=== PATIENT | male | born 1955 | race Caucasian/White ===

== ENCOUNTER 2018-08-21 14:17 | Emergency (ER) | payer OTHER, SELFPAY ==
[2018-08-21 14:18] VITALS: BP 125/89; PULSE 68; RESP 14; TEMP 36.8; O2SAT 97; BMI 24.0
--- NOTE | 2018-08-21 14:34 | ED.RN ---
ABRASIONS TO RT ANKLE, 2 ABRASION AROUND RT ELBOW.
--- NOTE | 2018-08-21 14:45 | RAD_ITS ---
STUDY: X-RAY - RIGHT HIP REASON FOR EXAM: Male, 63 years old. Pain following a fall. TECHNIQUE: 2 views of the hip. COMPARISON: None. FINDINGS: Normal femoral head, neck, intertrochanteric region and visualized proximal femur. Normal acetabulum. Normal hip joint. Normal visualized superior and inferior pubic rami and ischial tuberosities. RAD/HIP, UNI W/ Pelvis 2-3 Views IMPRESSION: Normal x-ray examination of the hip. Electronically Signed: Shashank Herrera MD at 15:21 EST Tel [phone], Service support ,
--- NOTE | 2018-08-21 15:20 | ED.VISSUMM ---
- ER Visit Summary Date of Service: 08/21/18 Chief Complaint: Right hip pain History of Present Illness: The patient is a 63 M brought in by EMS after right hip injury. 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 They fell to the ground and the patient landed on his right lateral hip. He has pain in the right hip. There is no pain radiating down the leg. He denies back pain. He did not strike his head. Physical Examination: Vital signs unremarkable. Patient sitting upright in bed no acute distress. Heart is regular rate and rhythm. Lungs sounds clear. Lower extremity examination reveals mild tenderness of the anterior portion of the right hip. He has equal leg lengths. Strong pulses are noted. He has mild pain with movement at the right hip. No pain with movement at the right knee or ankle. Skin exam reveals superficial skin abrasions are noted over the right lateral ankle and the right upper arm. No bony tenderness is noted to these areas. Test Results: Pelvis x-rays with right hip are obtained and unremarkable. Emergency Department Course and Treatment: Patient declined anything for pain here. He will use Tylenol or ibuprofen at home for pain. Treatment Plan: [] Disposition: Discharge Impression: Right hip contusion status post fall This note was generated with [employer] dictation software. It may contain incorrect words, spelling, and punctuation that were not noted in review of the chart prior to signing ED Disposition - Plan for ED Patient: Chief Complaint: Lower Extremity Injury Referrals: Dillon Herman [Primary Care Provider] -
--- NOTE | 2018-08-21 15:21 | ED.DEP ---
ED Disposition - Plan for ED Patient: Disposition: Home or Assisted Living Chief Complaint: Lower Extremity Injury Instructions: ED Contusion Hip Additional Instructions: Follow-up with Safia at the [facility].
== END 2018-08-21 15:41 | disposition home or self-care (01) ==
PROVIDERS: Emergency Provider Emergency Medicine; Family Provider Internal Medicine; PCP Internal Medicine
DX: S70.01XA Contusion of right hip, initial encounter (principal); W03.XXXA Other fall on same level due to collision with another person, initial encounter; Y93.89 Activity, other specified; Y92.512 Supermarket, store or market as the place of occurrence of the external cause; Y99.0 Civilian activity done for income or pay; J45.909 Unspecified asthma, uncomplicated; Z87.891 Personal history of nicotine dependence
CPT/HCPCS: 73502; 99284